=== PATIENT | female | born 1965 | race Caucasian/White ===

== ENCOUNTER 2016-12-02 12:25 | Emergency (ER) | payer MEDICAID ==
[~2016-12-02] VITALS: Ht 170.2 cm; Wt 79.5 kg
[2016-12-02 12:27] VITALS: BP 163/93; PULSE 82; RESP 18; TEMP 98.2; O2SAT 98
[2016-12-02] MEDS ORDERED: CITA40TA4 PO (12:41)
[2016-12-02] MEDS ORDERED: SODIUM CHLORIDE 0.9% FLUSH 10 ML FLUSH IV FLUSH PRN (13:00)
--- NOTE | 2016-12-02 13:00 | PD ---
HPI Chief Complaint: Flank/Kidney Pain Time Seen by Provider: 12:59 Travel History International Travel<30 days: No Contact w/Intl Traveler<30days: No Traveled to known affect area: No History of Present Illness HPI 51-year-old female presents to the emergency Department with complaint of bilateral lower back pain and epigastric pain 4 days. 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 Lower back pain and epigastric pain is worse with bending over. Denies nausea, vomiting, diarrhea, constipation, dysuria. Denies vaginal discharge. Denies abdominal pain while at rest. Pain is aggravated with bending over. Has not taken any medications or tried any treatments to alleviate her symptoms. Has no other medical complaints. No known allergies. No other modifying factors or associated signs and symptoms. PFSH Past Medical History Depression: Yes High Cholesterol: Yes ?: Not Menopausal: Yes Tubal Ligation: Yes Social History Alcohol Use: Yes (6pk/weekly) Tobacco Use: Yes (ppd) Substance Use: No Allergies-Medications (Allergen,Severity, Reaction): Coded Allergies: No Known Allergies (Unverified , 12/02/16) Reported Meds & Prescriptions Reported Meds & Active Scripts Active Bentyl (Dicyclomine HCl) 10 Mg Cap 10 Mg PO TID PRN Reported Citalopram (Citalopram Hydrobromide) 40 Mg Tab 40 Mg PO DAILY Review of Systems Except as stated in HPI: all other systems reviewed are Neg Physical Exam Narrative GENERAL: Well-nourished, well-developed female patient, in no acute distress; afebrile SKIN: Warm and dry. HEAD: Atraumatic. Normocephalic. EYES: Pupils equal and round. No scleral icterus. No injection or drainage. ENT: Mucosa pink and moist. Airway patent. NECK: Trachea midline. CARDIOVASCULAR: Regular rate and rhythm. No murmur appreciated. RESPIRATORY: No accessory muscle use. Clear to auscultation. Breath sounds equal bilaterally. GASTROINTESTINAL: Abdomen soft, tenderness on palpation to epigastric region; nondistended. Hepatic and splenic margins not palpable. Bowel sounds are active 4 quadrants. Nonrigid. No guarding. BACK: No CVA tenderness. MUSCULOSKELETAL: No obvious deformities. No clubbing. No cyanosis. No edema. NEUROLOGICAL: Awake and alert. Oriented 3. No obvious cranial nerve deficits. Motor grossly within normal limits. Normal speech. PSYCHIATRIC: Appropriate mood and affect; insight and judgment normal. Data Data Last Documented VS Vital Signs Date Time Temp Pulse Resp B/P Pulse Ox O2 Delivery O2 Flow Rate FiO2 12/02/16 12:27 98.2 82 18 163/93 98 Room Air Orders Complete Blood Count With Diff (12/02/16 13:00) Comprehensive Metabolic Panel (12/02/16 13:00) Lipase (12/02/16 13:00) Urinalysis - C+S If Indicated (12/02/16 13:00) Iv Access Insert/Monitor (12/02/16 13:00) Sodium Chloride 0.9% Flush (Ns Flush) (12/02/16 13:00) Labs Laboratory Tests Test 12/02/16 12/02/16 12/02/16 13:05 13:10 13:35 Urine Color YELLOW Urine Turbidity CLEAR Urine pH 5.5 Urine Specific [place] 1.013 Urine Protein NEG mg/dL Urine Glucose (UA) NEG mg/dL Urine Ketones NEG mg/dL Urine Occult Blood NEG Urine Nitrite NEG Urine Bilirubin NEG Urine Urobilinogen LESS THAN 2.0 MG/DL Urine Leukocyte Esterase NEG Urine RBC LESS THAN 1 /hpf Urine WBC 1 /hpf Urine Squamous Epithelial 1 /hpf Cells Microscopic Urinalysis Comment CULT NOT INDICATED White Blood Count 10.0 TH/MM3 Red Blood Count 5.01 MIL/MM3 Hemoglobin 15.7 GM/DL Hematocrit 46.0 % Mean Corpuscular Volume 92.0 FL Mean Corpuscular Hemoglobin 31.3 PG Mean Corpuscular Hemoglobin 34.0 % Concent Red Cell Distribution Width 12.5 % Platelet Count 250 TH/MM3 Mean Platelet Volume 9.2 FL Neutrophils (%) (Auto) 58.5 % Lymphocytes (%) (Auto) 30.7 % Monocytes (%) (Auto) 9.2 % Eosinophils (%) (Auto) 1.2 % Basophils (%) (Auto) 0.4 % Neutrophils # (Auto) 5.8 TH/MM3 Lymphocytes # (Auto) 3.1 TH/MM3 Monocytes # (Auto) 0.9 TH/MM3 Eosinophils # (Auto) 0.1 TH/MM3 Basophils # (Auto) 0.0 TH/MM3 CBC Comment DIFF FINAL Differential Comment Sodium Level 140 MEQ/L Potassium Level 4.0 MEQ/L Chloride Level 107 MEQ/L Carbon Dioxide Level 27.3 MEQ/L Anion Gap 6 MEQ/L Blood Urea Nitrogen 13 MG/DL Creatinine 0.63 MG/DL Estimat Glomerular Filtration 100 ML/MIN Rate Random Glucose 93 MG/DL Calcium Level 9.1 MG/DL Total Bilirubin 0.5 MG/DL Aspartate Amino Transf 12 U/L (AST/SGOT) Alanine Aminotransferase 33 U/L (ALT/SGPT) Alkaline Phosphatase 100 U/L Total Protein 8.1 GM/DL Albumin 3.8 GM/DL Lipase 164 U/L [facility] Medical Decision Making Medical Screen Exam Complete: Yes Emergency Medical Condition: Yes Medical Record Reviewed: Yes Differential Diagnosis GERD, nonspecific abdominal pain, musculoskeletal pain, muscle strain Narrative Course 51-year-old female with epigastric abdominal tenderness and low back pain that are worse with bending over. I discussed the patient with Dr. Joe, my attending physician, and she agrees with my plan of care to check labs and urinalysis. CBC, CMP, lipase, urinalysis ordered. 1429: CBC, CMP unremarkable. Lipase 164. Urinalysis with no signs of infection. 1450: Dr. Joe with the patient and agrees patient stable for outpatient follow-up. Patient provided with [facility] [employer] fire direction specialist information for follow-up. Bentyl prescribed for home. Instructed patient to follow up with cannon fire direction specialist. Instructed patient to follow up with primary care provider. Patient verbalizes understanding and agreement with treatment plan. Patient is medically cleared and stable for discharge. Discussed reasons to return to the emergency department. Patient agrees with treatment plan. The patients vital signs are stable and the patient is stable for outpatient follow- up and treatment. Patient discharged home, stable and in no acute distress. Diagnosis Primary Impression: Abdominal pain Qualified Code: R10.13 - Epigastric pain Referrals: Celeste Biggs MD Primary Care Physician Patient Instructions: Abdominal Pain (ED), General Instructions Additional Instructions: Bentyl as prescribed and as needed for bowel management Follow-up with primary care provider Follow-up with gastroenterology Return to the emergency department immediately for worsening of symptoms Med/Other Pt SpecificInfo: No Change to Meds, No Meds Exist/No RX given Scripts Dicyclomine (Bentyl)10 Mg Cap10 Mg PO TID PRN (Bowel Management) #30 CAP Ref 0 Prov:Rassi,Brenda K [employer] 12/02/16 Disposition: 01 DISCHARGE HOME Condition: Stable Brenda Esteves Dec 02, 2016 13:00
[2016-12-02 13:28] LABS: BLOOD, URINE NEG (NEG); COMMENT (UR) CULT NOT INDICATED; CULTURE IF INDICATED CULT NOT INDICATED; GLUCOSE,URINE NEG (NEG); KETONE, URINE NEG (NEG); NITRITE,URINE NEG (NEG); PH, URINE 5.5 (5.0-8.5); SQUAMOUS EPITHELIAL CELL URINE 1 /hpf (0-5); URINE COLOR YELLOW (YELLW/STRAW)
[2016-12-02 13:28] LABS: AUTOMATED NEUTROPHIL # 5.8 TH/MM3 (1.8-7.7); BASOPHIL % 0.4 % (0.0-2.0); EOSINOPHIL # 0.1 TH/MM3 (0-0.4); EOSINOPHIL % 1.2 % (0.0-4.0); HEMO FLAGS DIFF FINAL; LYMPH % 30.7 % (9.0-44.0); LYMPHOCYTE # 3.1 TH/MM3 (1.0-4.8); MEAN CORPUSCULAR HEMOGLOBIN 31.3 PG (27.0-34.0); MONO % 9.2 % (0.0-8.0); NEUT % 58.5 % (16.0-70.0); PLATELET COUNT 250 TH/MM3 (150-450); RED BLOOD COUNT 5.01 MIL/MM3 (4.00-5.30); RED CELL DISTRIBUTION WIDTH 12.5 % (11.6-17.2)
[2016-12-02 13:51] LABS: ALKALINE PHOSPHATASE 100 U/L (45-117); ALT (GPT) 33 U/L (10-53); TOTAL BILIRUBIN ADULT 0.5 MG/DL (0.2-1.0)
[2016-12-02 14:28] LABS: ANION GAP 6 MEQ/L (5-15); AST (GOT) 12 U/L (15-37); BICARBONATE 27.3 MEQ/L (21.0-32.0); BLOOD UREA NITROGEN 13 MG/DL (7-18); CHLORIDE 107 MEQ/L (98-107); GLOMERULAR FILTRATION RATE 100 ML/MIN (>89); SODIUM (NA) 140 MEQ/L (136-145)
[2016-12-02] MEDS ORDERED: DICY10 PO (14:56)
== END 2016-12-02 15:18 | disposition home or self-care (01) ==
LOC: NEPD 12:25
DX: R10.13 Epigastric pain (principal); F17.210 Nicotine dependence, cigarettes, uncomplicated
CPT/HCPCS: 80053; 81001; 83690; 85025; 99283